=== PATIENT | female | born 1950 | race Caucasian/White ===

== ENCOUNTER 2017-07-20 23:10 | Inpatient (IN) | payer OTHER, SELFPAY ==
--- NOTE | 2017-07-20 | XR_ITS ---
XR chest portable HISTORY: Respiratory failure, chest pain ORDERING PHYSICIAN: José Manuel Ling MD PATIENT AGE: 66 years COMPARISON: None available FINDINGS: The cardiomediastinal silhouette and pulmonary vascularity are within normal limits. Endotracheal tube has been inserted. The tip is in good position 3.8 cm by the gentry. There is overlying artifact from defibrillator device. Patchy density is noted in the right perihilar region may be due to an area of atelectasis or infiltrate or even pulmonary nodule. Follow-up recommended when patient can tolerate. Left lung is clear. IMPRESSION: 1. Good position of endotracheal tube. 2. Possible right perihilar parenchymal lung disease
--- NOTE | 2017-07-20 | IR_ITS ---
CARDIAC CATHETERIZATION DATE OF CATHETERIZATION:07/20/2017 11:36 PM PROCEDURES: 1. Left heart catheterization 2. Left ventriculogram 3. Selective coronary angiogram 4. Thrombectomy to the proximal LAD followed by drug-eluting stent deployment 5. Right femoral arterial access 6. Placement of intra-aortic balloon pump INDICATION FOR TEST: 1. Acute anterior ST elevation myocardial infarction 2. Coronary artery disease 3. Cardiogenic shock Informed consent was obtained prior to the procedure. COMPLICATIONS: None ESTIMATED BLOOD LOSS: Less than 10 ml. TECHNIQUE: One percent lidocaine used to anesthetize the right anterior aspect of the wrist. The right radial artery was accessed via the Seldinger technique. A 6 Yi sheath was placed in the right radial artery. 2.5 mg of verapamil, 800 mcg of nitroglycerin was administered intra-arterially. An Massively Fun right guide catheter was used to perform right coronary artery angiography as well as left heart catheterization and left ventriculogram. Following this an Ikari left guide catheter was used intubate the left main artery and a choice PT wire was used to push through the occlusion. An export catheter was used to aspirate a thrombus in the proximal LAD there by restoring CHARLY-3 flow. A 3 mm x 18 mm resolute Homer stent was deployed at 20 abbe reducing the stenosis to 0%. CHARLY 0 flow was present at the beginning of the procedure with CHARLY-3 flow present at the end of the procedure. The initial ACT 240 seconds therefore an additional 3000 units of heparin was administered intravenously. At the end of the procedure repeat ACT reveal an ACT of 244 seconds. An additional 3000 units of heparin was administered intravenously and order to achieve an ACT greater than 300 based on patient's inability to take Brilinta while in the emergency department. An NG tube was placed in the Clinical Aide and 180 mg of Brilinta was administered per NG tube. 325 mg of aspirin was also administered per NG tube final ACT was out of range. One percent lidocaine was used to anesthetize the right groin in the right femoral artery was accessed via the Seldinger technique. The balloon pump sheath was placed into the right femoral artery and using fluoroscopic guidance the balloon pump was advanced into the descending aorta. The balloon pump was then filled and placed on a 1-1 exchange. The balloon pump was secured using 2-0 silk. ANGIOGRAPHIC RESULTS: 1. The left main artery normal 2. The left anterior descending artery was initially proximally occluded after the procedure the proximal LAD had a stent which was widely patent with excellent distal and proximal transitioning. First diagonal artery was patent. 3. The circumflex artery gives rise to a large ramus intermedius which has mild luminal irregularities while the circumflex artery has mild luminal irregularities less than 10% stenosis 4. The right coronary artery is a dominant vessel and has proximal 20% stenoses with a mid vessel 30-40% stenosis 5. The SALOMON ventriculogram reveals left ventricular dilatation with akinetic anterior apical wall estimated ejection fraction 15-20% 6. The left ventricular end-diastolic pressure 40 mmHg IMPRESSION: 1. Acute proximal LAD occlusion accompanied by cardiogenic shock 2. Successful thrombectomy and percutaneous revascularization of the proximal LAD 100% occlusion reduced to 0% with 1 drug-eluting stent preceded by successful thrombectomy 3. Severe left ventricular dysfunction with akinetic anterior wall 4. Severely elevated LVEDP 5. Nonflow limiting disease in the circumflex artery, ramus intermedius, and right coronary artery 6. Successful placement of intra-aortic balloon pump into the descending aorta PLAN: 1. [facility]
[2017-07-20 23:39] LABS: ABG HCO3 18.6 mmhg (22.0-26.0); ABG Oxygen Saturation 99 % (90-100); ABG PO2 343.8 mmhg (80-100); ABG TCO2 20.2 mmhg (23-27)
[2017-07-20 23:55] VITALS: O2SAT 100
[2017-07-21] VITALS (48 sets, daily range): BP systolic 20–146; BP diastolic 12–103; PULSE 30–104; RESP 14–24; TEMP 34.4–36.7; O2SAT 87–99; BMI 36.6; BMI 32.5
--- NOTE | 2017-07-21 | XR_ITS ---
XR chest portable 0130 hours HISTORY: ITS.REASON: BALLOON PUMP PLACEMENT ORDERING PHYSICIAN: José Manuel Ling MD PATIENT AGE: 66 years COMPARISON: 07 20 17 FINDINGS: Endotracheal tube is present with the tip 2.6 cm by the gentry. There is a right subclavian central venous line with the tip in the region of the right atrium. No evidence of pneumothorax. There is moderate patient rotation. The right lateral aspect of the chest is not included in the exam. Nasogastric tube has been inserted. The tip is at the GE junction. A small metallic density is noted at the aortic knob area and may be due to a femoral placed aortic balloon pump. An additional metallic density noted over L2 etiology indeterminate. There is moderate patient rotation and respiratory motion artifact. IMPRESSION: Supporting tubes and lines present as detailed above with moderate patient rotation and respiratory motion artifact.
--- NOTE | 2017-07-21 00:04 | HMH.EDCPR ---
ED Disposition Clinical Impression: Cardiac arrest, Cardiogenic shock, Hypokalemia, Ventricular fibrillation, Ventricular tachycardia STEMI (ST elevation myocardial infarction) Qualifiers: Involved coronary artery: LAD coronary artery Qualified Code(s): I21.02 - ST elevation (STEMI) myocardial infarction involving left anterior descending coronary artery Disposition: Admitted As Inpatient Condition on Discharge: Critical Time of Disposition: 00:56 - Critical Care Critical Care Time: Yes Attestation: On 07/20/17, the high probability of a clinically significant, sudden or life threatening deterioration of the following system(s) required my full and direct attention, intervention and personal management. The time I documented below is in addition to time spent performing reported procedures but includes the following listed in this critical care notation. Total Critical Care Time: 60 Vital system(s) involved:: Circulatory Failure My critical care processes included: Assessment & monitoring of V/S, Initial and Re-exams, Data Review/Interpretation, Coordinating Care, Medication Orders and management, Documentation [facility] Code Documentation - Arrest Information Outside of Hospital The Code Document Section documentation for [id number] Chad Sarmientory was populated with data that defaulted in from the leaf stripper in the Code Assessment on f_Reg Service Date] to provide within this report, the status and treatment of the patient in the ED during a Code. This documentation will be supplemented with my direct findings within the body of the report. Arrest Witnessed: Yes - ALS Code Inititation ALS Initiated By: Hospital Staff ALS Type: ACLS - Patient Condition At Code Start Condition of Patient at Start of Code: Pulseless, Apneic, Unconscious - Labs Fingerstick Blood Glucose: 120 Specimens collected: Blood - Procedures ABG's Drawn: Yes Labs Drawn: Yes Medical Decision Making - Medical Records Medical records reviewed: Yes: I reviewed the patient's medical records. - Lab Data Lab results reviewed: Yes: I reviewed the patient's lab results. Lab Results 07/20/17 23:35: Specimen Source R radial, O2 % 100, ABG pH 7.17 L*, ABG pCO2 52.3 H, ABG pO2 343.8 H, ABG HCO3 18.6 L, ABG Total CO2 20.2 L, ABG O2 Saturation 99, ABG Base Excess -10.0 L, Sarthak Test Acceptable 07/21/17 00:00: WBC 22.5 H*, RBC 5.10, Hgb 14.9, Hct 47.9 H, MCV 93.9, MCH 29.1, MCHC 31.0 L, RDW 13.3, Plt Count 263, MPV 9.5, Neut % (Auto) 42.5, Lymph % (Auto) 49.4, [place] % (Auto) 3.9, Eos % (Auto) 1.1, Baso % (Auto) 0.8, Neut # (Auto) 9.6 H, Lymph # (Auto) 11.2 H, [place] # (Auto) 0.9, Eos # (Auto) 0.2, Baso # (Auto) 0.2, Total Counted 100, Neutrophils % (Manual) 40 L, Lymphocytes % (Manual) 54 H, Monocytes % (Manual) 4, Eosinophils % (Manual) 1, Basophils % (Manual) 1.0, Platelet Estimate Normal, Anisocytosis 1+ 07/21/17 00:00: Sodium 142, Potassium 3.1 L, Chloride 104, Carbon Dioxide 24, Anion Gap 17.1 H, BUN 11, Creatinine 0.84, Estimated Creat Clear 90, Estimated GFR 68, Est GFR ( Amer) 83, Glucose 233 H, Calcium 8.7, Total Bilirubin 0.1 L, AST 107 H, ALT 104 H, Alkaline Phosphatase 83, Total Protein 5.8 L, Albumin 2.9 L, Globulin 2.9, Albumin/Globulin Ratio 1.0 L 07/21/17 00:00: D-Dimer 3450 H* 07/21/17 00:00: Total Creatine Kinase 103, CK-MB (CK-2) 6.5 H, CK-MB (CK-2) Rel Index 6.3 H, Troponin I 1.46 H 07/21/17 00:00: B-Natriuretic Peptide < 5 07/21/17 00:02: Specimen Source R femoral, O2 % 100, ABG pH 7.16 L*, ABG pCO2 50.5 H, ABG pO2 281.4 H, ABG HCO3 17.6 L, ABG Total CO2 19.1 L, ABG O2 Saturation 99, ABG Base Excess -11.1 L, Sarthak Test N/a, Vent Rate 16, Tidal Volume 500, PEEP 5 07/21/17 00:09: Activated Clotting Time 240 H* 07/21/17 00:25: Activated Clotting Time 244 H* 07/21/17 00:26: Specimen Source R femoral, O2 % 100, ABG pH 7.25 L, ABG pCO2 45.9 H, ABG pO2 342.5 H, ABG HCO3 19.6 L, ABG Total CO2 21.0 L, ABG O2 Saturation 99, ABG Base Excess -7.6 L, Sarthak Nix
--- NOTE | 2017-07-21 00:07 | ED_ITS ---
ED Disposition Clinical Impression: Cardiac arrest, Cardiogenic shock, Hypokalemia, Ventricular fibrillation, Ventricular tachycardia STEMI (ST elevation myocardial infarction) Qualifiers: Involved coronary artery: LAD coronary artery Qualified Code(s): I21.02 - ST elevation (STEMI) myocardial infarction involving left anterior descending coronary artery Disposition: Admitted As Inpatient Condition on Discharge: Critical Time of Disposition: 00:56 - Critical Care Critical Care Time: Yes Attestation: On 07/20/17, the high probability of a clinically significant, sudden or life threatening deterioration of the following system(s) required my full and direct attention, intervention and personal management. The time I documented below is in addition to time spent performing reported procedures but includes the following listed in this critical care notation. Total Critical Care Time: 60 Vital system(s) involved:: Circulatory Failure My critical care processes included: Assessment & monitoring of V/S, Initial and Re-exams, Data Review/Interpretation, Coordinating Care, Medication Orders and management, Documentation [facility] Code Documentation - Arrest Information Outside of Hospital The Code Document Section documentation for [id number] Chad Sarmientory was populated with data that defaulted in from the outbound sales representative in the Code Assessment on f_Reg Service Date] to provide within this report, the status and treatment of the patient in the ED during a Code. This documentation will be supplemented with my direct findings within the body of the report. Arrest Witnessed: Yes - ALS Code Inititation ALS Initiated By: Hospital Staff ALS Type: ACLS - Patient Condition At Code Start Condition of Patient at Start of Code: Pulseless, Apneic, Unconscious - Labs Fingerstick Blood Glucose: 120 Specimens collected: Blood - Procedures ABG's Drawn: Yes Labs Drawn: Yes Medical Decision Making - Medical Records Medical records reviewed: Yes: I reviewed the patient's medical records. - Lab Data Lab results reviewed: Yes: I reviewed the patient's lab results. Lab Results 07/20/17 23:35: Specimen Source R radial, O2 % 100, ABG pH 7.17 L*, ABG pCO2 52.3 H, ABG pO2 343.8 H, ABG HCO3 18.6 L, ABG Total CO2 20.2 L, ABG O2 Saturation 99, ABG Base Excess -10.0 L, Sarthak Test Acceptable 07/21/17 00:00: WBC 22.5 H*, RBC 5.10, Hgb 14.9, Hct 47.9 H, MCV 93.9, MCH 29.1 , MCHC 31.0 L, RDW 13.3, Plt Count 263, MPV 9.5, Neut % (Auto) 42.5, Lymph % ( Auto) 49.4, [place] % (Auto) 3.9, Eos % (Auto) 1.1, Baso % (Auto) 0.8, Neut # (Auto ) 9.6 H, Lymph # (Auto) 11.2 H, [place] # (Auto) 0.9, Eos # (Auto) 0.2, Baso # ( Auto) 0.2, Total Counted 100, Neutrophils % (Manual) 40 L, Lymphocytes % (Manual ) 54 H, Monocytes % (Manual) 4, Eosinophils % (Manual) 1, Basophils % (Manual) 1.0, Platelet Estimate Normal, Anisocytosis 1+ 07/21/17 00:00: Sodium 142, Potassium 3.1 L, Chloride 104, Carbon Dioxide 24, Anion Gap 17.1 H, BUN 11, Creatinine 0.84, Estimated Creat Clear 90, Estimated GFR 68, Est GFR ( Amer) 83, Glucose 233 H, Calcium 8.7, Total Bilirubin 0.1 L, AST 107 H, ALT 104 H, Alkaline Phosphatase 83, Total Protein 5.8 L, Albumin 2.9 L, Globulin 2.9, Albumin/Globulin Ratio 1.0 L 07/21/17 00:00: D-Dimer 3450 H* 07/21/17 00:00: Total Creatine Kinase 103, CK-MB (CK-2) 6.5 H, CK-MB (CK-2) Rel Index 6.3 H, Troponin I 1.46 H 07/21/17 00:00: B-Natriuretic Peptide < 5 07/21/17 00:02: Specimen Source R femoral, O2 % 100, ABG pH 7.16 L*, ABG pCO2 50.5 H, ABG pO2 281.4 H, ABG HCO3 17.6 L, ABG Total CO2 19.1 L, ABG O2 Saturation 99, ABG Base Excess -11.1
[2017-07-21 00:23] LABS: Hematocrit 47.9 % (37.0-47.0); Hemoglobin 14.9 g/dL (12.2-16.2); Mean Corpuscular Hemoglobin 29.1 pg (27.0-31.2); Mean Corpuscular Volume 93.9 fl (81-99); Red Cell Distribution Width 13.3 % (11.5-17.5); White Blood Count 22.5 K/mm3 (4.8-10.8)
[2017-07-21 00:24] LABS: Basophils # 0.2 K/mm3 (0-0.2); Basophils % 0.8 % (0.1-2.0); Eosinophils # 0.2 K/mm3 (0.0-0.4); Eosinophils % 1.1 % (0.1-12.0); Lymphocytes # 11.2 K/mm3 (0.7-4.5); Lymphocytes % 49.4 K/mm3 (10-50); Mean Platelet Volume 9.5 fl (7.4-10.4); Monocytes # 0.9 K/mm3 (0.1-1.0); Monocytes % 3.9 % (1.7-9.3); Neutrophils # 9.6 K/mm3 (1.8-7.8); Neutrophils % 42.5 % (37.0-80.0); Platelet Count 263 K/mm3 (142-424)
[2017-07-21 00:25] LABS: MANUAL DIFFERENTIAL MANUAL DIFFERENTIAL (MANUAL DIFF)
[2017-07-21 00:26] LABS: Anion Gap 17.1 mEq/L (5-15); Blood Urea Nitrogen 11 mg/dL (7-18); Calcium 8.7 mg/dL (8.5-10.1); Carbon Dioxide 24 mmol/L (21.0-32.0); Chloride 104 mmol/L (98-107); Creatinine Clearance Estimated 90 mL/min (0-300); Creatinine,Serum 0.84 mg/dL (0.55-1.02); Estimated Glomerular Filt Rate 68 ml/min (>60); GFR (African American) 83 ML/MIN (>60); Glucose 233 mg/dL (74-106); Potassium 3.1 mmoL/L (3.5-5.1); Sodium 142 mmol/L (136-145)
[2017-07-21 00:27] LABS: Alanine Aminotransferase 104 U/L (12-78); Albumin Level 2.9 gm/dL (3.4-5.0); Alkaline Phosphatase 83 U/L (46-116); Aspartate Amino Transferase 107 U/L (15-37); Bilirubin,Total 0.1 mg/dL (0.2-1.0); Globulin 2.9 gm/dl (1.3-3.2); Total Protein,Serum 5.8 gm/dL (6.4-8.2)
[2017-07-21 00:28] LABS: CKMB Relative Index 6.3 U/L (0-4.0); Creatine Kinase 103 U/L (26-192); Creatine Kinase MB 6.5 mg/ml (0.0-3.6)
[2017-07-21 00:29] LABS: Troponin I 1.46 ng/ml (0.00-0.06)
[2017-07-21 01:01] LABS: Microscopic, Urine URINE MICROSCOPIC (MICROSCOPIC)
--- NOTE | 2017-07-21 01:17 | PC.NURSE ---
pt Arrived and went unresponsive while moving to the stretcher, no pulse or respiration, cpr started immediately while team was assembled, immediate defib at 2236 ( see defib print out), continued CPR, shock at 2239, immediately continued cpr, 2240 shock again for sustained v -fib and amiodarone bolus started, faint pulse with v-tach, intubated with amidate 40mg using 7.5 tube placed 24 cm at lip, with xray at 2249 loss of pulse after x-ray showing v-fib on the monitor 2250 shocked again with continued cpr, lidocaine 4mg at 225 with faint pulse , ekg obtained, bicrab 1 amp given at 225, loss of pulses and cpr resumed at 230, epi given at 230, 2305, with continuos cpr, and shock at 230 for v-fib, epi again at 230 and 231, shocked at 231 for v-fib, epi at 2314 and 2318 and Dopamine started 2318 also heparin bolus of 10,[address] Corona, epi given at 232 and 2325 with continuos CPR, return of pulse with organized rhythm. Hr 106, 98/73 BP, per Dr Corona 2 amps of EPI at 2331, sodium bicarb at 2332, ABG obtained at 2333, 2334 pt received Flumazenil 0.5mg , at 2338 During Central line Placement pt began to move extremities, pt now receiving 4th liter of NS wide open per Dr Corona and Levophed started wide open. Calvillo Cather placed with no urine output at 2340, Abg results reported showing acidosis and 3rd amp of sodium bicarb given at 234, pt still maintaining an organized rhythm with pulses. pt left for laboratory technician at 2350 and arrived at 2353 with code team and laboratory technician team.
[2017-07-21 01:28] LABS: D-Dimer 3450 (0-400)
[2017-07-21 01:50] LABS: Anisocytosis 1+; Eosinophils % 1 % (0-3); Lymphocytes % 54 % (10-50); Monocytes % 4 % (2-9); Neutrophils % 40 % (42-76); Platelet Estimate Normal; Total Cells Counted 100
--- NOTE | 2017-07-21 02:37 | PC.NURSE ---
spoke with xray dept regarding xray for tube placement. xray just received for this shift.
[2017-07-21 02:42] LABS: CATHL Activated Clotting Time 240 SEC (74-125)
[2017-07-21 02:42] LABS: CATHL Activated Clotting Time > 400 SEC (74-125)
[2017-07-21 02:43] LABS: CATHL Activated Clotting Time 244 SEC (74-125)
[2017-07-21 03:08] LABS: Appearance,Urine CLEAR (Clear); Bilirubin,Urine Negative (Negative); Blood, Urine 3+ (Negative); Color,Urine YELLOW (Yellow); Glucose,Urine (UA) 3+ (Negative); Ketones,Urine Negative (Negative); Leukocyte Esterase,Urine Negative (Negative); Nitrate,Urine Negative (Negative); PH,Urine 5.5 (5.0-8.5); Protein,Urine 1+ (Negative); Urobilinogen,Urine 0.2 EU/dl (0.2)
[2017-07-21 03:17] LABS: Amphetamine/Metha Screen,Urine Negative ng/mL (<1000); Barbiturates Screen,Urine Negative ng/mL (<200); Benzodiazepines Screen,Urine Positive ng/mL (200); Cannabinoid Screen,Urine Negative ng/mL (<50); Cocaine Screen,Urine Negative ng/g (<300); Methadone Screen,Urine Negative ng/mL (<300); Opiate Screen,Urine Negative ng/mL (<300); Phencyclidine Screen,Urine Negative ng/mL (<25)
[2017-07-21 03:21] LABS: Bacteria,Urine 1+ /lpf; Mucus,Urine 1+ /lpf; RBC,Urine 20-50 #/hpf (0-3)
--- NOTE | 2017-07-21 03:41 | PC.NURSE ---
PT WAS ADMITTED TO ICU FROM [facility]. REPORTS THAT PT WAS VOMITING AROUND 2200 ON 07/20 AND STATED THAT WAS IN BED AND REPORTED CHEST PAIN. HE SAID HE ASKED HER IF SHE NEEDED TO GO TO THE ER AND SHE SAID YES. IN REPORT FROM ER, PT HAD A SEIZURE DURING TRANSPORT FROM WHEELCHAIR TO STRETCHER AND PT CODED SOON SHE GOT TO THE STRETCHER. PT CODED AND WAS TAKEN TO THE [facility] AND PER REPORT, A CLOT WAS REMOVED AND 1 STENT WAS PLACED IN HER CIRC. HER STATED HE DID NOT BELIEVE THAT SHE WAS ON ANY MEDS OTHER THAN GABAPENTIN AND IBUPROFEN BUT THAT HE DID NOT KNOW THE DOSAGES BUT THAT SHE USES [facility] IN [place]. SHE HAS RHONCHI T/O. GAG REFLEX PRESENT. ALL EXTREMITIES FLACCID. LEFT PUPIL IS REACTIVE BUT RIGHT PUPIL IS NOT. FILM NOTED OVER RIGHT PUPIL. HER SKIN IS GERARDO IN COLOR AND LOWER EXTREMITIES ARE MOTTLED. SHE IS HYPOTHERMIC VIA RECTAL TEMPS. KORI PAW IN PLACE. SHE HAS A BALLON PUMP THAT IS INSERTED ON HER RIGHT GROIN. TRIPLE LUMEN PRESENT ON RIGHT SIDE. PT IS ON MEDICATIONS FOR BEING HYPOTENSIVE; SEE MAR. SHE HAS A NG IN HER LEFT NARE WITH LIWS; BROWNISH BLOOD COLORED DRAINAGE PER NG. SHE IS INTUBATED ON AC, TIDAL VOLUME 500, PEEP 0, FIO2-100%, RATE 24. ET TUBE IS AT 24 @ RIGHT LIP. ET TUBE IS 7.5. ATTEMPTING TO WEAN FIO2. SHE IS BLEEDING AT IV SITES AND CENTRAL LINE; INTEGRILIN WAS STOPPED PER MD. SHE IS VOIDING PER F/C. URINE IS YELLOW, CLEAR.
--- NOTE | 2017-07-21 04:51 | PC.NURSE ---
was unable to take a rectal temp lab was taking blood
--- NOTE | 2017-07-21 05:16 | PC.NURSE ---
DR BURK PAGED AT 0575 IN REGARDS TO PT'S LOW BP. MILRINONE GTT ORDERED PER DR BURK AT 0.25MCG/KG/MIN. 9812-DR BURK PAGED REGARDING PT'S BP. LAB IS ATTEMPTING TO DRAW BLOOD R/T PT'S CRITICAL GLUCOSE OF 578. MULTIPLE ATTEMPTS THUS FAR THAT ARE UNSUCCESSFUL.
--- NOTE | 2017-07-21 05:20 | PC.NURSE ---
UNABLE TO GET RECTAL TEMPS AT NEEDED R/T RESPIRATORY ATTEMPTING TO GET ABG AND LAB TRYING TO DRAW LABS.
--- NOTE | 2017-07-21 05:23 | PC.NURSE ---
CALLED AT THIS TIME AND NOTIFIED OF PT'S BP AND STATUS.
--- NOTE | 2017-07-21 05:33 | PC.NURSE ---
DR BURK CALLED AT THIS TIME AND STATED TO GIVE HER AN AMP OF EPI WHEN SBP DROPS BELOW 50. PAGED AT THIS TIME TO NOTIFY OF PT'S CONDITION.
--- NOTE | 2017-07-21 05:48 | INFXCTL.NOTE ---
ANOTHER EPI GIVEN AT THIS TIME.
--- NOTE | 2017-07-21 06:12 | PC.NURSE ---
PT'S SIGNED A DRN AT 0605. SPOKE WITH DR PACE AT 0600. PT IS RECEIVING A 200CC LR BOLUS AND THEN LR @ 100CC/HR.
--- NOTE | 2017-07-21 06:15 | PC.NURSE ---
HER IS AT THE BEDSIDE AT THIS TIME.
--- NOTE | 2017-07-21 06:19 | PC.NURSE ---
WAS UNABLE TO TAKE TEMP LAB WAS TRYING TO TAKE BLOOD
--- NOTE | 2017-07-21 06:20 | PC.NURSE ---
WAS NOT ABLE TO TAKE TEMP LAB WAS TRYING TO TAKE BLOOD
--- NOTE | 2017-07-21 06:29 | PC.NURSE ---
THIS NURSE AND MEDICAL CLAIMS SPECIALIST HAVE BEEN AT PT'S BEDSIDE SINCE PT WAS ADMITTED TO THE FLOOR.
[2017-07-21 06:59] LABS: POC Glucose,Bedside 578 mg/dL
--- NOTE | 2017-07-21 07:24 | PC.NURSE ---
Addendum entered by Viviane Roberts RN 07/25/17 07:55: TRIPLE LUMEN LEVOPHED 30MCG/MIN. Original Note: PT'S IV AND MEDS ARE FOLLOWS: #20LAC HEPARIN @ 20ML/HR TRIPLE LUMEN WITH LR @ 100ML/HR & MILRINONE @ 0.25MCG/KG/MIN TRIPLE LUMEN AMIO @17ML/HR #20 RIGHT HAND EPINEPHRINE @ 30MCG/MIN VENT SETTINGS: ASSIST CONTROL TV 500 PEEP 0 PRESSURE SUPPORT 0 FIO2-95% RATE 24 ETT 7.5 24 @ RIGHT SIDE
[2017-07-21 07:27] LABS: Allen's Test ACCEPTABLE; Oxygen 100 %; Source R RADIAL
[2017-07-21 07:28] LABS: ABG PCO2 52.3 mmhg (35.0-45.0); ABG PH 7.17 mmol/L (7.35-7.45)
[2017-07-21 07:37] LABS: ABG Base Excess -11.1 mmol/L (-2.4-2.3); ABG HCO3 17.6 mmhg (22.0-26.0); ABG Oxygen Saturation 99 % (90-100); ABG PO2 281.4 mmhg (80-100); ABG TCO2 19.1 mmhg (23-27)
[2017-07-21 08:00] LABS: Oxygen 100 %; PEEP 5; Tidal Volume 500; Vent Rate 16
[2017-07-21 08:01] LABS: ABG PH 7.16 mmol/L (7.35-7.45); Source R FEMORAL
[2017-07-21 08:02] LABS: ABG PCO2 50.5 mmhg (35.0-45.0)
[2017-07-21 08:05] LABS: ABG Base Excess -11.4 mmol/L (-2.4-2.3); ABG HCO3 18.3 mmhg (22.0-26.0); ABG Oxygen Saturation 81 % (90-100); ABG PO2 55.8 mmhg (80-100); ABG TCO2 20.1 mmhg (23-27); Oxygen 100 %; PEEP 5; Source R FEMORAL; Tidal Volume 500; Vent Rate 24
[2017-07-21 08:06] LABS: ABG PCO2 60.4 mmhg (35.0-45.0)
[2017-07-21 08:11] LABS: ABG Base Excess -7.6 mmol/L (-2.4-2.3); ABG HCO3 19.6 mmhg (22.0-26.0); ABG Oxygen Saturation 99 % (90-100); ABG PCO2 45.9 mmhg (35.0-45.0); ABG PH 7.25 mmol/L (7.35-7.45); ABG PO2 342.5 mmhg (80-100); Oxygen 100 %; PEEP 5; Source R FEMORAL; Tidal Volume 500; Vent Rate 24
--- NOTE | 2017-07-21 08:36 | HMH.HPDC ---
<Christina Jacome - Last Filed: 07/21/17 09:26> General - General Admission date: 07/21/17 Discharge date: 07/21/17 *Admission Date: 07/21/17 *Chief complaint: CP and nausea *History of present illness: Ms. Sarmiento was a 66-year-old female who told her she was having nausea and chest pain and needed to go to the emergency room last night. They presented to the emergency room and when she got up off of the stretcher, she fell backwards, had a seizure, and went into cardiac arrest. According to nursing staff, she was coded for an hour and was then taken to the Con[facility]. A stent was placed and she was started on a balloon pump. She was taken to the ICU and her blood pressure began to drop. She was started on epinephrine, norepinephrine, amiodarone, milrinone, a heparin drip, and lactated Ringer's. Her blood pressure and heart rate continued to decrease. Her decided to make her a DNR and to turn off the balloon pump, the epinephrine, and the norepinephrine. The balloon pump was turned off at 8:10am on 07/21/17 and the patient at 8:25 AM. [facility] History Medical History: Reports:: Asthma, Chronic Obstructive Pulmonary Disease (COPD), Depression, Gastroesophageal Reflux Disease(GERD), Myocardial Infarction Laterality Cases: Right: Lumpectomy, Bilateral: Tonsillectomy Other Surgeries: Yes: Hysterectomy-Total - *Social History Smoking Status: Current every day smoker Tobacco Type: cigarettes Alcohol Intake: never Occupational Status: other - Psychiatric History Expresses thoughts of harming self/others: None Suicide Plan Description: No Plan *Family Hx:: Cancer, Coronary Artery Disease Review of Systems - Review of Systems Review of systems:: unable to obtain Exam Vital signs and Labs for Last 24 Hours: Temp Pulse Resp BP Pulse Ox 94.0 F L 32 L 22 20/12 90 L 07/21/17 06:05 07/21/17 07:28 07/21/17 06:05 07/21/17 07:28 07/21/17 06:05 Laboratory Results - last 24 hr 07/21/17 02:16: Specimen Source R femoral, O2 % 100, ABG pH 7.10 L*, ABG pCO2 60.4 H, ABG pO2 55.8 L, ABG HCO3 18.3 L, ABG Total CO2 20.1 L, ABG O2 Saturation 81 L*, ABG Base Excess -11.4 L, Sarthak Test N/a, Vent Rate 24, Tidal Volume 500, PEEP 5 07/21/17 02:29: Urine Color Yellow, Urine Appearance Clear, Urine pH 5.5, Ur Specific [place] 1.010, Urine Protein 1+, Urine Glucose (UA) 3+, Urine Ketones Negative, Urine Blood 3+, Urine Nitrate Negative, Urine Bilirubin Negative, Urine Urobilinogen 0.2, Ur Leukocyte Esterase Negative, Urine RBC 20-50, Urine WBC 3-5, Ur Squamous Epith Cells 5-10, Urine Bacteria 1+, Fine Granular Casts 3-5, Urine Mucus 1+ 07/21/17 02:29: Urine Opiates Screen Negative, Ur Barbituates Screen Negative, Ur Phencyclidine Scrn Negative, Ur Amphetamines Screen Negative, U Methamphetamines Scrn Negative, U Benzodiazepines Scrn Positive H, Urine Cocaine Screen Negative, U Marijuana (THC) Screen Negative 07/21/17 04:35: POC Glucose 578 I & O for Last 24 hours: Intake & Output 07/18/17 07/19/17 07/20/17 07/21/17 11:59 11:59 11:59 11:59 Output Total Balance - Weight 201 lb 6.4 oz Microbiology Reports for the Last 24 Hours: Microbiology 07/21/17 02:26 Sputum - Endotracheal Wash Gram Stain - Final - Constitutional Comments: Pt on ventilator and not responding - *Routine HEENT Exam Head: Present: normocephalic, atraumatic ENT: Present: mucous membranes dry - *Routine Neck Exam Present: supple - *Routine Respiratory Exam Present: distant breath sounds - *Routine Cardiovascular Exam Comments: Heart rate was in the 20s when I initially assessed the patient however once the balloon pump was turned off, her heart rate decreased was no longer audible - *Routine Abdominal Exam Present: soft - *Routine Extremities Exam Present: edema (upper and lower extremities) - *Routine Skin Exam Present: mottling Comments: cyanotic - *Routine Neurological Exam P
--- NOTE | 2017-07-21 08:40 | P.SWB_ITS ---
<Christina Jacome - Last Filed: 07/21/17 09:26> General - General Admission date: 07/21/17 Discharge date: 07/21/17 *Admission Date: 07/21/17 *Chief complaint: CP and nausea *History of present illness: Ms. Sarmiento was a 66-year-old female who told her she was having nausea and chest pain and needed to go to the emergency room last night. They presented to the emergency room and when she got up off of the stretcher, she fell backwards, had a seizure, and went into cardiac arrest. According to nursing staff, she was coded for an hour and was then taken to the Dietetic Technician. A stent was placed and she was started on a balloon pump. She was taken to the ICU and her blood pressure began to drop. She was started on epinephrine, norepinephrine, amiodarone, milrinone, a heparin drip, and lactated Ringer's. Her blood pressure and heart rate continued to decrease. Her decided to make her a DNR and to turn off the balloon pump, the epinephrine, and the norepinephrine. The balloon pump was turned off at 8:10am on 07/21/17 and the patient at 8:25 AM. [facility] History Medical History: Reports:: Asthma, Chronic Obstructive Pulmonary Disease (COPD) , Depression, Gastroesophageal Reflux Disease(GERD), Myocardial Infarction Laterality Cases: Right: Lumpectomy, Bilateral: Tonsillectomy Other Surgeries: Yes: Hysterectomy-Total - *Social History Smoking Status: Current every day smoker Tobacco Type: cigarettes Alcohol Intake: never Occupational Status: other - Psychiatric History Expresses thoughts of harming self/others: None Suicide Plan Description: No Plan *Family Hx:: Cancer, Coronary Artery Disease Review of Systems - Review of Systems Review of systems:: unable to obtain Exam Vital signs and Labs for Last 24 Hours: Temp Pulse Resp BP Pulse Ox 94.0 F L 32 L 22 20/12 90 L 07/21/17 06:05 07/21/17 07:28 07/21/17 06:05 07/21/17 07:28 07/21/17 06:05 Laboratory Results - last 24 hr 07/21/17 02:16: Specimen Source R femoral, O2 % 100, ABG pH 7.10 L*, ABG pCO2 60.4 H, ABG pO2 55.8 L, ABG HCO3 18.3 L, ABG Total CO2 20.1 L, ABG O2 Saturation 81 L*, ABG Base Excess -11.4 L, Sarthak Test N/a, Vent Rate 24, Tidal Volume 500, PEEP 5 07/21/17 02:29: Urine Color Yellow, Urine Appearance Clear, Urine pH 5.5, Ur Specific [place] 1.010, Urine Protein 1+, Urine Glucose (UA) 3+, Urine Ketones Negative, Urine Blood 3+, Urine Nitrate Negative, Urine Bilirubin Negative, Urine Urobilinogen 0.2, Ur Leukocyte Esterase Negative, Urine RBC 20-50, Urine WBC 3-5, Ur Squamous Epith Cells 5-10, Urine Bacteria 1+, Fine Granular Casts 3- 5, Urine Mucus 1+ 07/21/17 02:29: Urine Opiates Screen Negative, Ur Barbituates Screen Negative, Ur Phencyclidine Scrn Negative, Ur Amphetamines Screen Negative, U Methamphetamines Scrn Negative, U Benzodiazepines Scrn Positive H, Urine Cocaine Screen Negative, U Marijuana (THC) Screen Negative 07/21/17 04:35: POC Glucose 578 I & O for Last 24 hours: Intake & Output 07/18/17 07/19/17 07/20/17 07/21/17 11:59 11:59 11:59 11:59 Output Total Balance - Weight 201 lb 6.4 oz Microbiology Reports for the Last 24 Hours: Microbiology 07/21/17 02:26 Sputum - Endotracheal Wash Gram Stain - Final - Constitutional Comments: Pt on ventilator and not responding - *Routine HEENT Exam Head: Present: normocephalic, atraumatic ENT: Present: mucous membranes dry - *Routine Neck Exam Present: supple - *Rout
--- NOTE | 2017-07-21 08:51 | PC.NURSE ---
0600 abg refused made pt DNR at this time
--- NOTE | 2017-07-21 08:54 | PC.NURSE ---
AT 0720 PT VENTILATED WITH BALLOON PUMP IN PLACE AND PATENT. EPINEPHRINE, NOREPINEPHRINE, MILRINONE, AMIODERONE, HEPARIN AND LR DRIPS ALL IN PLACE AND INFUSING PER ORDER. FAMILY REMAINS AT BEDSIDE. EQUISITIVE TO HOW LONG IT WOULD BE BEFORE PT PASSED. INFORMED THAT BP WAS LOW AT 20/14 WITH ASSISTANCE FROM MEDICATIONS AND THE BALLOON PUMP AND INFORMED THAT HER HR WAS LOW AT ONLY 30 BEATS/MIN. INFORMED THAT BOTH ARE VERY LOW R/T PT BASELINE AND WOULD CONTINUE TO DO EVERYTHING WE COULD UP UNTIL HIS WISHES OF THE PT BEING A DNR. AT 0745 COMES OUT TO SPEAK WITH THIS RN ABOUT PT PROGNOSIS AGAIN. STS THAT HE DOESNT WANT TO PROLONG THE INEVITABLE AND WISHES TO KNOW IF THERE IS ANYTHING WE CAN DO. I INFORMED HIM THAT IT WOULD BE HIS DECISION ON HER LINE OF TREATMENT AND IF HE WISHED WE COULD WITHDRAW CARE WHICH WOULD INCLUDE TURNING MEDICATIONS OFF ALONG WITH THE BALLOON PUMP. STS AT THIS TIME HE DOES WISH TO CEASE BLOOD PRESSURE MEDICATIONS AND THE BALLOON PUMP. [address] DR[address] BURK [address] DR COLUNGA PAGED WITH RETURNED PHONE CALLS SHORTY AFTER. MD'S UPDATED ON PT CONDITION, BP OF 20/14 AND HR OF 30 ALONG WITH NO URINARY OUT PUT AND NO DOPPLERED PEDAL PULSE ALONG WITH A WEAK RADIAL PULSE. ALSO INFORMED OF THE HUSBANDS WISHES TO CEASES CERTAIN TREATMENT. DR. BURK GAVE PERMISSION TO TURN OFF THE BALLOON PUMP ALONG WITH BP SUSTAINING MEDICATIONS. 0810 VICKY BRIDGES AT BEDSIDE AND BALLOON PUMP, NOREPI AND EPI CEASED. PT ON BS MONITOR SHOWING HR OF 25 AND NO BP. O2 87% ON 95% O2 MECHANICAL VENTILATION. DURING THIS TIME ONLY MUFFLED HEART SOUNDS HEARD AT VERY SELDOM INTERVALS BY MYSELF AND VICKY BRIDGES. 0815 DR COLUNGA AT BEDSIDE AND SPOKE WITH AND INFORMED HIM THAT PT WAS IMMINENT PT AT THIS TIME HAD VERY AGONAL HEART BEATS AT [address] STILL IN PL[address]. DR. CUI OK TO DISCONTINUE TO VENTILATOR. 0824 VENT DISCONNECTED BY RT AND SHORTYLY AFTER NO RESPIRATIONS NOTED, NO HEART BEAT TO AUSCULTATION. SOME ECTOPIC BEATS NOTED TO MONITOR. 0825 NO HEART RATE NOTED, NO ECTOPIC BEATS ON THE MONITOR AND NO RESPIRATIONS. TIME OF NOTED TO BE 0825.
--- NOTE | 2017-07-21 09:36 | PC.NURSE ---
8102 AUTOMATION MANAGER CONTACTED R/T WITHIN 24 HOURS OF ADMISSION. INFORMED PER JUAN JAIME OK TO RELEASE TO THE HOME. NO AUTOPSY NEED. DR. COLUNGA COMPLETED AUTOPSY CONSIDERATION/CAUSE OF FORM AND CONCURS WITH ABOVE. 0968 JAZMIN CONTACTED. PT IS A POSSIBLE TISSUE AND EYE DONOR. HUSBANDS INFORMATION GIVEN TO [facility] CONTRACTS ADMINISTRATOR FOR POSSIBLE DONATION. WILL RECEIVE CALL BACK PER [place] EPPERSON ONCE FAMILY HAS BEEN APPROACHED. INFORMED BY REP THAT POST[place]EM CARE COULD BE COMPLETED AND [place] [facility] [place].
--- NOTE | 2017-07-21 11:01 | PC.NURSE ---
POST MORTEM CARE COMPLETED BY THIS RN AND LORE MACHADO. ET TUBE, LAC IV AND CENTRAL LINE REMOVED. SEVERE AMOUNT OF BLOOD OOZING FROM CENTRAL LINE SITE. PRESSURE HELD AND PRESSURE DRESSING APPLIED TO STOP BLEEDING. OTHER IV, TRACELET AND BALLOON PUMP LINES LEFT INTACT R/T SEVERE BLEEDING ONCE REMOVED. WILL INFORM HOME WHEN CONTACT. 1045 HOME CALLED AND STATED THAT HAD CONTACTED THEM ABOUT COMING TO PRODUCT ENGINEERING MANAGER THE BODY OF PT. INFORMED THAT WE WERE AWAITING A CALL BACK FROM [facility] BEFORE RELEASING THE BODY. INFORMED HOME IS ONE HOUR AWAY AND TO CALL CHARLEEN. 1100 [facility] CONTACTED ABOUT STATUS OF APPROACHING FAMILY. CLIFTON EPPERSON STS MULTIPLE ATTEMPTS MADE TO CONNECT BUT HAVE NOT BEEN SUCCESSFUL AT SPEAKING WITH FAMILY. INFORMED THEY WILL TRY A FEW MORE TIMES AND GIVEN AN UPDATE SOON THEY CAN.
--- NOTE | 2017-07-21 12:44 | PC.NURSE ---
1245 SPOKE WITH JAZMIN AGAIN AND GAVE ADDITIONAL PHONE NUMBER FOR PT FOUND ON PT FACESHEET. CLEAN RICE GRADER AND REEL TENDER STATES THERE HAS STILL BEEN NO ANSWER WHEN TRYING TO CONTACT THE . HOME PHONE NUMBER AND CELL PHONE NUMBER REPEATED TO CLEAN RICE GRADER AND REEL TENDER. WILL UPDATE ONCE IS CONTACTED AND MAKES HIS DECISION ON ORGAN DONATION.
--- NOTE | 2017-07-21 16:13 | PC.NURSE ---
CONTACTED AT 1510 TO MAKE HIM AWARE JAZMIN WAS TRYING TO REACH HIM. JAZMIN CALL THIS RN AND STATED THEY WOULD TRY AND CALL HIM BACK. AT 1500 JAZMIN CONTACTED AGAIN AND THEY STAT THEY TRIED TO CONTACT THE AGAIN AND EVEN LEFT A MESSAGE FOR HIM TO CALL BACK. AT THIS TIME THEY SAY IT IS OK TO RELEASE THE BODY TO THE HOME. 1530 PT ASSESSED AND NOTED TO HAVE COPIOUS AMOUNTS OF BLOOD COMING FROM CENTRAL LINE CITE. SRNA AND THIS RN CLEANED PT AGAIN AND A PRESSURE DRESSING APPLIED TO CENTRAL LINE SITE ALONG WITH IV SITE AND FEMORAL BALLOON PUMP SITE. AWAITING ARRIVAL OF HOME
--- NOTE | 2017-07-25 07:58 | PC.NURSE ---
LATE ENTRY: 07/21/17604-PROPOFOL DISCONTINUED AT THIS TIME R/T DROP IN BLOOD PRESSURE. PHYSICIAN NOTIFIED. AFTER PROPOFOL STOPPED, SRNA INSTRUCTED TO STAY AT BEDSIDE DUE TO PT BECOMING AGITATED AND THROWING ARMS AROUND TO ENSURE PT SAFETY R/T ET TUBE AND GROIN SITE.
--- NOTE | 2017-07-25 08:25 | PC.NURSE ---
LATE ENTRY: 07/21/17 6990-Integrilin stopped at this time per MD r/t pt bleeding at IV sites
[2017-08-10 15:01] LABS: POC Glucose,Bedside 154 mg/dL (70-110)
== END 2017-07-21 17:30 | disposition expired | DRG 272 ==
LOC: ER 07-21 01:20 → ICU 07-21 01:38
PROVIDERS: Internal Medicine; Admitting Provider Family Medicine; Emergency Provider Emergency Medicine; Family Provider Family Medicine; PCP Family Medicine; Visit Provider Family Medicine
PROC: 4A023N7 Measurement of Cardiac Sampling and Pressure, Left Heart, Percutaneous Approach (ICD-10-PCS; principal; 2017-07-21 00:05)
DX: I21.02 ST elevation (STEMI) myocardial infarction involving left anterior descending coronary artery (principal); R57.0 Cardiogenic shock; I49.01 Ventricular fibrillation; I25.10 Atherosclerotic heart disease of native coronary artery without angina pectoris; J44.9 Chronic obstructive pulmonary disease, unspecified; Z72.0 Tobacco use; E87.6 Hypokalemia
CPT/HCPCS: 33970; 31500; 71045; 80053; 80305; 81001; 82550; 82553; 82803; 82962; 83880; 84484; 85007; 85025; 85347; 85378; 87070; 87077; 87186; 87205; 92928; 92941; 92950; 93005; 93458; 94002; 96365; 96366; 96367; 96375; 96376; 99152; 99153; C1725; C1751; C1769; C1876; C9600; C9606; J0282; J1327; J1644; J2260; Q9967